=== PATIENT | male | born 1965 | race Caucasian/White ===

== ENCOUNTER 2020-04-10 05:37 | Emergency (ER) | payer OTHER, MEDICARE ==
[~2020-04-10] VITALS: Ht 167.6 cm; Wt 74.4 kg
--- NOTE | 2020-04-10 05:38 | NUR ---
PT ELOINA MANNS. TAKEN TO BED 4
[2020-04-10 05:46] VITALS: BP 106/71
--- NOTE | 2020-04-10 06:01 | NUR ---
PT STARTED HAVING NECK PAIN 3 DAYS AGO, IT HAS GOTTEN PROGRESSIVELY WORSE. THIS MORNING THE PAIN WAS UNBEARABLE. UNABLE TO TURN HEAD DUE TO PAIN. PAIN RADIATES INTO RIGHT ARM AND HAND CAUSING N/T. 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 BED IN LOWEST POSITION, LOCKED, AND SIDERAIL UP X 1. NKA HX - DEGENERATIVE DISC DX, CHRONIC NECK AND BACK PAIN
[2020-04-10] MEDS ORDERED: methylPREDNISolone SS 125 MG/2 ML VIAL IM ONE (06:15)
[2020-04-10] MEDS ORDERED: ALBUTEROL SULFATE/IPRATROPIU 3 ML SOL IH ONE (06:15)
--- NOTE | 2020-04-10 06:17 | NUR ---
Dr. Chow examining patient.
[2020-04-10] MEDS ORDERED: KETOROLAC 30 MG/ML VIAL IM ONE (06:25)
[2020-04-10] MEDS ORDERED: CYCLOBENZAPRINE 10 MG TAB PO ONE (06:25)
--- NOTE | 2020-04-10 06:30 | NUR ---
CALLED PT'S SISTER, JUSTEN, AT [phone], FOR HER TO COME AND PICK HIM UP, NO ANSWER, LEFT VOICE MAIL MESSAGE FOR HER TO RETURN CALL.
[2020-04-10 06:41] VITALS: BP 106/71
--- NOTE | 2020-04-10 06:41 | NUR ---
Patient discharged with v/s stable. Written and verbal after care instructions given and explained. Patient alert, oriented and verbalized understanding of instructions. Ambulatory with steady gait. All questions addressed prior to discharge. ID band removed. Patient advised to follow up with PMD. Rx of FLEXERIL AND MELOXICAM given. Patient educated on indication of medication including possible reaction and side effects. Opportunity to ask questions provided and answered.
--- NOTE | 2020-04-10 06:45 | NUR ---
TRIED TO CALL SISTER AGAIN, NO ANSWER. PT ASKING FOR [place] TO [place], OFFERED HIM A BUS PASS. PT HAS NO SHOES ON AND STATES HE CAN'T WALK WITHOUT SHOES. SECURITY CONTACTED TO SEE IF THEY HAVE SHOES FOR PATIENT.
== END 2020-04-10 06:41 | disposition home or self-care (01) ==
LOC: MED 05:37
DX: M54.2 Cervicalgia (principal)
CPT/HCPCS: 96372; 99283; J1885

== ENCOUNTER 2020-06-22 13:51 | Emergency (ER) | payer MEDICARE, MEDICAID ==
[~2020-06-22] VITALS: Ht 167.6 cm; Wt 74.4 kg
[2020-06-22 13:51] VITALS: BP 126/74
[2020-06-22] MEDS ORDERED: HYDROcodone/APAP 5/325 MG 1 TAB TAB PO ONE (14:20)
--- NOTE | 2020-06-22 14:42 | NUR ---
54 YO M C/O WORSENING L LEG PAIN X 3 DAYS. PT REPORTS HITTING L LEG ON POLE 2 MONTHS AGO BUT NOT EXPERIENCING ANY PAIN IN AREA UNTIL 3 DAYS AGO. UPON ASSESSMENT, VSS. 3/5 STRENGTH ON LEFT LE, 5/5 STRENGTH ON RIGHT LE. CAP REFILL <4SECS. PT ABLE TO AMBULATE WITH ASSIST. PT SITTING ON CHAIR. ERMD MADE AWARE OF PT STATUS. PMH: NONE NKA
[2020-06-22 15:24] VITALS: BP 126/74
--- NOTE | 2020-06-22 15:25 | NUR ---
Patient discharged with v/s stable. Written and verbal after care instructions given and explained. Patient alert, oriented and verbalized understanding of instructions. Ambulatory with crutches. All questions addressed prior to discharge. ID band removed. Patient advised to follow up with PMD. Rx of NORCO given. Patient educated on indication of medication including possible reaction and side effects. Opportunity to ask questions provided and answered.
== END 2020-06-22 15:25 | disposition home or self-care (01) ==
LOC: MED 13:51
DX: M25.562 Pain in left knee (principal); Z79.899 Other long term (current) drug therapy
CPT/HCPCS: 73562; 99283

== ENCOUNTER 2021-10-03 15:36 | Emergency (ER) | payer MEDICARE, MEDICAID ==
[~2021-10-03] VITALS: Ht 167.6 cm; Wt 76.2 kg
[2021-10-03 15:37] VITALS: BP 124/75
--- NOTE | 2021-10-03 15:40 | NUR ---
PT AMBULATED TO BED 4
[2021-10-03] MEDS: KETOROLAC 30 MG/ML VIAL IM ONE (16:03)
--- NOTE | 2021-10-03 16:04 | NUR ---
XRAY AT BEDSIDE
[2021-10-03] MEDS: BACITRACIN OINT 500 UNITS/GM PKT TP ONE (16:34)
--- NOTE | 2021-10-03 16:42 | NUR ---
APPLIED DRESSING TO PT'S WOUND ON RIGHT LEG. APPLIED NON-ADHESISVE DRESSING AND SECURED USING 2 INCH GAUZE ROLL AND TAPE. CMS WNL BEFORE/AFTER. ERMD NOTIFIED.
--- NOTE | 2021-10-03 16:52 | NUR ---
Chart checked and completed. The patient's care was reviewed and supervised by Claudia Norris RN.
== END 2021-10-03 16:46 | disposition home or self-care (01) ==
LOC: MED 15:36
DX: S80.11XA Contusion of right lower leg, initial encounter (principal); S40.011A Contusion of right shoulder, initial encounter; W18.30XA Fall on same level, unspecified, initial encounter; Y93.89 Activity, other specified; Y92.513 Shop (commercial) as the place of occurrence of the external cause; Y99.8 Other external cause status
CPT/HCPCS: 73030; 73590; 96372; 99284; J1885